=== PATIENT | female | born 1955 | race Caucasian/White ===

== ENCOUNTER 2017-10-14 10:17 | Day surgery (SDC) | payer BC ==
[~2017-10-14 10:17] MED LIST: Lidocaine 1% with EPINEPHrine 1:100,000 50 ML MDV ONE; Midazolam 1 MG/ML 2 ML SDV ONE; Propofol 200 MG/20 ML SDV ONE; Sodium Chloride 0.9% 10 ML ONE; Sodium Tetradecyl Sulfate 1% 20 MG/2 ML SDV ONE; fentaNYL 100 MCG/2 ML SDV ONE
[2017-10-14] MEDS ORDERED: Sodium Chloride 0.9% 1,000 ML IV SCH (11:00)
[2017-10-14] MEDS ORDERED: fentaNYL 100 MCG/2 ML SDV ONE (12:51)
[2017-10-14] MEDS: Lidocaine 1% w/EPINEPHrine 50 ML, Sodium Bicarbonate 5 MEQ in Sodium Chloride 0.9% 950 ML INJECT SCH ×2 (13:00→13:20)
[2017-10-14] MEDS ORDERED: Propofol 200 MG/20 ML SDV ONE (13:01)
[2017-10-14] MEDS ORDERED: Sodium Chloride 0.9% 10 ML ONE (13:26)
[2017-10-14] MEDS ORDERED: Sodium Tetradecyl Sulfate 1% 20 MG/2 ML SDV ONE (13:26)
[2017-10-14 14:18] VITALS: BP 167/86
--- NOTE | 2017-10-15 09:46 | OR ---
DATE OF PROCEDURE: 10/14/2017 PROCEDURES: 1. Radiofrequency ablation of left greater saphenous vein. 2. Radiofrequency ablation of right greater saphenous vein. 3. Sclerotherapy of left leg, multiple. 4. Sclerotherapy of right leg, multiple. 5. CoFlex wrapping, two-stage, left leg(18176). 6. CoFlex wrapping, right leg (61972). COMPLICATIONS: None. DIP FILLER: None. PREOPERATIVE DIAGNOSIS: Venous/varicose vein insufficiency with inflammation and pain. POSTOPERATIVE DIAGNOSIS: Venous/varicose vein insufficiency with inflammation and pain. RISKS: Risks, benefits, alternatives, limitations including, but not limited to infection, bleeding, and DVT formation were explained to the patient and wished to proceed. PROCEDURE IN DETAIL: The patient was placed in supine position. Left greater saphenous vein was identified at the level of the mid calf and, due to tortuosity, was not able to be any lower. This was accessed using a 21-gauge needle then exchanged for a 7-Qatari sheath via a 35,000th wire. Lidocaine was used to anesthetize the area. The RFA probe was advanced to 3 cm from the saphenofemoral junction. Tumescent fluid was injected in 1-cm jacket around this and verified a second and third time. Direct even pressure was held as the probe was deployed x2 proximally, distally, and x1 in all other segment. The sheath and device were removed. Direct pressure was held. Dermabond was applied. The right greater saphenous vein was then performed in same manner, same fashion , same technique in the same sequence using the same equipment. Sclerotherapy was then performed in left and right legs using 0.33% sodium tetradactyl. This was always drawn back to ensure intravascular injection only. No more than 2 mL was injected in one location. There were 5 on the right and 4 on the left. Two-stage CoFlex wrapping was then applied in a [id number]-lyrdt fashion. This was applied in proximal to distal pressure gradients. This was performed in left and right legs. The patient tolerated the procedure well. Ray Ross MD /[id number]
== END 2017-10-14 14:39 | disposition home or self-care (01) ==
LOC: JP.SDS 10:17
PROVIDERS: ATTEND Surgery
DX: I83.12 Varicose veins of left lower extremity with inflammation (principal); I83.11 Varicose veins of right lower extremity with inflammation; I83.813 Varicose veins of bilateral lower extremities with pain; D50.9 Iron deficiency anemia, unspecified; Z79.899 Other long term (current) drug therapy; Z98.84 Bariatric surgery status; Z90.10 Acquired absence of unspecified breast and nipple; Z98.890 Other specified postprocedural states
CPT/HCPCS: 36471; 36475; J1642; J2250; J2704; J3010; J7040; J7050; J3490

== ENCOUNTER 2021-05-09 06:59 | Day surgery (SDC) | payer BC ==
[2021-05-09] MEDS ORDERED: Midazolam 1 MG/ML 2 ML SDV ONE (07:17)
[2021-05-09] MEDS ORDERED: Propofol 200 MG/20 ML SDV ONE (07:17)
[2021-05-09] MEDS ORDERED: fentaNYL 100 MCG/2 ML SDV ONE (07:17)
[2021-05-09] MEDS ORDERED: Sodium Chloride 0.9% 1,000 ML IV SCH (07:45)
[2021-05-09 10:48] VITALS: BP 129/83; PULSE 73
--- NOTE | 2021-05-09 12:03 | OR ---
DATE OF PROCEDURE: 05/09/2021 SURGEON: Ray Ross MD PROCEDURE: Colonoscopy. FINDINGS: Normal colonoscopy. COMPLICATIONS: None. RESIZER OPERATOR: None. PREOPERATIVE DIAGNOSIS: Screening colonoscopy/history of colon polyps. POSTOPERATIVE DIAGNOSIS: Screening colonoscopy/history of colon polyps. RISKS: Risks, benefits, alternatives, and limitations including, but not limited to, infection, bleeding, perforation, false positives, and false negatives were explained to the patient, who wished to proceed. We also discussed perforation requiring surgical repair and other risks not listed here. DESCRIPTION OF PROCEDURE: The patient was placed in left lateral decubitus position. Digital rectal exam was performed without abnormality. Scope was introduced and advanced atraumatically to the ileocecal valve. A photo was taken. Scope was brought back to the ascending, transverse, descending colon, and retroflexed. No evidence of old or new blood. No masses. No polyps. No evidence of diverticulosis. No colitis. No abnormalities on retroflexion. Greater than 8 minutes was spent removing the scope. The prep was acceptable. Approximately 90% of the luminal surface could be seen. No abnormalities on retroflexion. There was some solid and liquid stool remaining. Suction irrigation techniques were used to remove the majority of this. The patient tolerated the procedure well. Ray Ross MD /[id number]
== END 2021-05-09 10:50 | disposition home or self-care (01) ==
LOC: JP.SDS 06:59
PROVIDERS: ATTEND Surgery
DX: Z12.11 Encounter for screening for malignant neoplasm of colon (principal); I10 Essential (primary) hypertension; Z86.010 Personal history of colon polyps
CPT/HCPCS: 45378; J2250; J2704; J3010; J7030